=== PATIENT | male | born 1960 | race African-American/Black ===

== ENCOUNTER 2021-06-25 14:20 | Emergency (ER) | payer MEDICAID ==
[~2021-06-25] VITALS: Ht 170.2 cm; Wt 77.1 kg
--- NOTE | 2021-06-25 14:38 | NUR ---
Dr Felix at the bedside for MSE.
[2021-06-25] MEDS ORDERED: PANTOPRAZOLE SODIUM 40 MG VIAL IV ONE (14:45)
[2021-06-25] MEDS ORDERED: IV NORMAL SALINE 1000 ML BAG IV ONE (14:45)
[2021-06-25] MEDS ORDERED: PANTOPRAZOLE SODIUM 40 MG VIAL ONE (14:52)
[2021-06-25 15:08] LABS: HEMATOCRIT 44.7 % (36.7-47.1); PLATELET COUNT (AUTO) 343 K/uL (152-348)
[2021-06-25 15:12] LABS: *BILIRUBIN,URIN NEGATIVE (NEGATIVE); *BLOOD, URINE NEGATIVE (NEGATIVE); *CLARITY,URINE CLEAR (CLEAR); *COLOR,URINE YELLOW (YELLOW); *KETONES,URINE NEGATIVE (NEGATIVE); *UROBILINOGEN,URINE 0.2 E.U./dl (NORMAL); LEUKOCYTE ESTERASE ,URINE NEGATIVE (NEGATIVE); NITRITE, URINE NEGATIVE (NEGATIVE); PH,URINE 5.5 (5.0-8.0); UGLUCOSE NEGATIVE (NEGATIVE)
[2021-06-25 15:14] LABS: CARBON DIOXIDE 26 mmol/L (21-32); CHLORIDE 103 mmol/L (98-107); GLUCOSE 100 mg/dL (74-106); UREA NITROGEN, BLOOD 23 mg/dL (7-18)
[2021-06-25 15:22] LABS: ALANINE AMINOTRANSFERASE 24 U/L (16-63); ALKALINE PHOSPHATASE 67 U/L (50-136); ASPARTATE AMINOTRANSFERASE 18 U/L (15-37); BILIRUBIN,DIRECT 0.1 mg/dL (0.0-0.2); BILIRUBIN,TOTAL 0.4 mg/dL (0.2-1.0); LIPASE 38 U/L (73-393); TOTAL PROTEIN, SERUM 8.2 g/dL (6.4-8.2)
--- NOTE | 2021-06-25 15:59 | NUR ---
IV removed. Catheter intact and site benign. Pressure and 4x4 gauze applied to site. No bleeding noted.
[2021-06-25] MEDS ORDERED: LOPE2CAP40 PO (16:05)
[2021-06-25] MEDS ORDERED: OMEP40CA21 PO (16:05)
[2021-06-25 16:10] VITALS: BP 125/70
--- NOTE | 2021-06-25 16:11 | NUR ---
Patient discharged to home in stable condition. Written and verbal after care instructions given with daughter. Patient verbalizes understanding of instructions. Stressed follow up or return to ER for worsening s/s.
== END 2021-06-25 16:11 | disposition home or self-care (01) ==
LOC: ER 14:20
DX: R19.7 Diarrhea, unspecified (principal); K21.9 Gastro-esophageal reflux disease without esophagitis; Z87.19 Personal history of other diseases of the digestive system; Z79.899 Other long term (current) drug therapy
CPT/HCPCS: 36415; 71045; 80048; 80076; 81003; 83690; 84484; 85025; 85730; 86850; 86900; 86901; 87086; 93005; 96361; 96374; 99285; C9113; A4663